=== PATIENT | female | born 1940 | race Caucasian/White ===

== ENCOUNTER → 2017-06-08 | Outpatient (CLI) | payer MEDICARE | END | disposition home or self-care (01) | LOC: KCIC MRI 14:24 | DX: S63.071A Subluxation of distal end of right ulna, initial encounter (principal); S63.8X1A Sprain of other part of right wrist and hand, initial encounter; M25.441 Effusion, right hand; M18.11 Unilateral primary osteoarthritis of first carpometacarpal joint, right hand; R60.0 Localized edema; X58.XXXA Exposure to other specified factors, initial encounter; Y93.89 Activity, other specified; Y92.89 Other specified places as the place of occurrence of the external cause; Y99.8 Other external cause status | CPT/HCPCS: 73221 ==